=== PATIENT | female | born 1955 | race Caucasian/White ===

== ENCOUNTER 2020-09-05 20:03 | Emergency (ER) | payer BC, OTHER ==
[~2020-09-05] VITALS: Ht 162.5 cm; Wt 65.7 kg
[~2020-09-05 20:03] MED LIST: LEVO750T6; OSLT75C
[2020-09-05] MEDS ORDERED: ASPIRIN 81 MG CHEW (CHILDREN'S ASA) PO ONE (20:15)
[2020-09-05 20:28] LABS: BASOPHILS # (AUTO) 0.1 10^3/uL (0.0-0.1); BASOPHILS % (AUTO) 1 % (0-10); EOSINOPHILS # (AUTO) 0.3 10^3/uL (0.0-0.3); EOSINOPHILS % (AUTO) 4 % (0-10); HEMATOCRIT 44 % (35-52); HEMOGLOBIN 14.6 g/dL (11.5-16.0); LYMPHOCYTES # (AUTO) 3.4 10^3/uL (1.0-4.0); LYMPHOCYTES % (AUTO) 42 % (12-44); MEAN CORPUSCULAR HEMOGLOBIN 32 pg (25-34); MEAN CORPUSCULAR HGB CONC 33 g/dL (32-36); MEAN CORPUSCULAR VOLUME 95 fL (80-99); MEAN PLATELET VOLUME 9.6 fL (9.0-12.2); MONOCYTES # (AUTO) 0.6 10^3/uL (0.0-1.0); MONOCYTES % (AUTO) 7 % (0-12); NEUTROPHILS # (AUTO) 3.6 10^3/uL (1.8-7.8); NEUTROPHILS % (AUTO) 46 % (42-75); PLATELET COUNT 253 10^3/uL (130-400); WHITE BLOOD COUNT 7.9 10^3/uL (4.3-11.0)
[2020-09-05] MEDS ORDERED: LACTATED RINGERS 1,000 ML IV ONE ×2 (20:36→20:45)
[2020-09-05 20:38] LABS: ALBUMIN 4.5 GM/DL (3.2-4.5)
[2020-09-05 20:39] LABS: CHLORIDE 105 MMOL/L (98-107); POTASSIUM 3.3 MMOL/L (3.6-5.0); SODIUM 140 MMOL/L (135-145)
[2020-09-05 20:40] LABS: AMYLASE 64 U/L (25-125); CALCIUM 9.1 MG/DL (8.5-10.1)
[2020-09-05 20:41] LABS: GLUCOSE 104 MG/DL (70-105); TOTAL PROTEIN 7.4 GM/DL (6.4-8.2)
--- NOTE | 2020-09-05 20:41 | ED General ---
General Chief Complaint: Cough/Cold/Flu Symptoms Stated Complaint: CHEST PAIN;CHILLS;DIZZY Source of Information: Patient History of Present Illness Date Seen by Provider: Sep 05, 2020 Time Seen by Provider: 20:08 Initial Comments PT ARRIVES VIA POV FROM HOME PT WITH MULTIPLE COMPLAINTS--ALL STARTED AROUND 1500 TODAY C/O CHILLS--HAS NOT CHECKED TEMP. TOOK 2 TYLENOL AROUND 1730 C/O BODY ACHES C/O HEADACHE C/O NON-PRODUCTIVE COUGH C/O MILD SHORTNESS OF BREATH C/O RIGHT UPPER CHEST PAIN--WITH COUGHING OR TAKING DEEP BREATH C/O NAUSEA, NO VOMITING. NO DIARRHEA. 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 PT DENIES ANY MEDICAL PROBLEMS, AND TAKES NO MEDICATIONS PT SMOKES 1 PPD PCP: DR. RADER Allergies and Home Medications Allergies Coded Allergies: erythromycin base (Verified Allergy, Unknown, 09/05/20) Home Medications Dexamethasone 6 Mg Tablet, 6 MG PO DAILY Prescribed by: LAURA CLARK on 09/05/202126 Guaifenesin/Dextromethorphan 1 Each Tbmp.12hr, 1 EACH PO BID Prescribed by: LAURA CLARK on 09/05/202126 Ondansetron 8 Mg Tab.rapdis, 8 MG PO Q6H Prescribed by: LAURA CLARK on 09/05/202125 Patient Home Medication List Home Medication List Reviewed: Yes Review of Systems Review of Systems Constitutional: see HPI, chills; No diaphoresis; dizziness; No fever; weakness EENTM: no symptoms reported; No nose congestion, No throat pain Respiratory: see HPI, cough, short of breath Cardiovascular: see HPI, chest pain; No edema, No palpitations, No syncope, No vascular heart diseas Gastrointestinal: see HPI; No abdominal pain, No diarrhea; nausea; No vomiting Genitourinary: no symptoms reported Musculoskeletal: see HPI (BODY ACHES) Skin: no symptoms reported Psychiatric/Neurological: Headache; Denies Numbness, Denies Paresthesia, Denies Seizure, Denies Tingling, Denies Weakness Hematologic/Lymphatic: No Symptoms Reported Immunological/Allergic: no symptoms reported Past Kdrfnnu-Qcgthe-Hncwvn Hx Past Med/Social Hx: Reviewed and Corrections made Patient Social History Alcohol Use: Denies Use Recreational Drug Use: No Smoking Status: Current Everyday Smoker (1 PPD) Type Used: Cigarettes Past Medical History Surgeries: Yes (RIGHT PNEUMOTHORAX/CHEST TUBE; HYST/BSO/APPY; BLADDER REPAIR; BOWEL REPAIR) Abdominal, Appendectomy, Bladder Surgery, Bowel Surgery, Hysterectomy, Oophorectomy Respiratory: Yes (PNEUMONIA X 1; RIGHT PNEUMOTHORAX POST OP) Pneumonia Cardiac: No Neurological: No 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 oz. kg; BMI Method: General Appearance: No Apparent Distress, WD/WN, Anxious, Other (TREMULOUS, SHIVERING. DOES NOT APPEAR ILL OR TO BE IN ANY DISCOMFORT OR DISTRESS ) HEENT: PERRL/EOMI, Pharynx Normal Neck: Full Range of Motion, Normal Inspection, Non Tender, Supple; No Carotid Bruit, No JVD Respiratory: Chest Non Tender, Normal Breath Sounds, No Accessory Muscle Use, No Respiratory Distress Cardiovascular: Regular Rate, Rhythm, No Edema, No JVD, No Murmur, Normal Peripheral Pulses Gastrointestinal: Normal Bowel Sounds, No Organomegaly, No Pulsatile Mass, Non Tender, Soft Back: Normal Inspection, No CVA Tenderness Extremity: Normal Capillary Refill, Normal Inspection, Normal Range of Motion, Non Tender, No Calf Tenderness, No Pedal Edema Neurologic/Psychiatric: Alert, Oriented x3, No Motor/Sensory Deficits, repairer engine production II- XII Norm as Tested, Other (ANXIOUS) Skin: Normal Color, Warm/Dry; No Rash Progress/Results/Core Measures Suspected Sepsis SIRS Temperature: Pulse: Respiratory Rate: Laboratory Tests 09/05/20 20:20: White Blood Count 7.9 Blood Pressure / Mean: Laboratory Tests 09/05/20 20:20: Creatinine 0.82, INR Comment 1.0, Platelet Count 253, Total Bilirubin 0.5 Results/Orders Lab Results Laboratory Tests Test 09/05/20 20:20 09/05/20 20:25 Range/Units White Blood Count 7.9 4.3-11.0 10^3/uL Red Blood Count 4.59 3.80-5.11 10^6/uL Hemoglobin 14.6 11.5-16.0 g/dL Hematocrit 44 35-52 % Mean Corpuscular Volume 95 80-99 fL Mean Corpuscular Hemoglobin 32 25-34 pg Mean Corpuscular Hemoglobin Concent 33 32-36 g/dL Red Cell Distribution Width 13.1 10.0-14.5 % Platelet Count 253 130-400 10^3/uL Mean Platelet Volume 9.6 9.0-12.2 fL Immature Granulocyte % (Auto) 0 % Neutrophils (%) (Auto) 46 42-75 % Lymphocytes (%) (Auto) 42 12-44 % Monocytes (%) (Auto) 7 0-12 % Eosinophils (%) (Auto) 4 0-10 % Basophils (%) (Auto) 1 0-10 % Neutrophils # (Auto) 3.6 1.8-7.8 10^3/uL Lymphocytes # (Auto) 3.4 1.0-4.0 10^3/uL Monocytes # (Auto) 0.6 0.0-1.0 10^3/uL Eosinophils # (Auto) 0.3 0.0-0.3 10^3/uL Basophils # (Auto) 0.1 0.0-0.1 10^3/uL Immature Granulocyte # (Auto) 0.0 0.0-0.1 10^3/uL Erythrocyte Sedimentation Rate 5 0-30 MM/HR Prothrombin Time 13.3 12.2-14.7 SEC INR Comment 1.0 0.8-1.4 Activated Partial Thromboplast Time 29 24-35 SEC D-Dimer 0.49 0.00-0.49 UG/ML Sodium Level 140 135-145 MMOL/L Potassium Level 3.3 L 3.6-5.0 MMOL/L Chloride Level 105 98-107 MMOL/L Carbon Dioxide Level 24 21-32 MMOL/L Anion Gap 11 5-14 MMOL/L Blood Urea Nitrogen 18 7-18 MG/DL Creatinine 0.82 0.60-1.30 MG/DL Estimat Glomerular Filtration Rate > 60 BUN/Creatinine Ratio 22 Glucose Level 104 70-105 MG/DL Calcium Level 9.1 8.5-10.1 MG/DL Corrected Calcium 8.7 8.5-10.1 MG/DL Magnesium Level 1.9 1.6-2.4 MG/DL Total Bilirubin 0.5 0.1-1.0 MG/DL Aspartate Amino Transf (AST/SGOT) 14 5-34 U/L Alanine Aminotransferase (ALT/SGPT) 12 0-55 U/L Alkaline Phosphatase 63 40-136 U/L Lactate Dehydrogenase 166 125-220 U/L Total Creatine Kinase 79 29-168 U/L Creatine Kinase MB 1.1 <6.6 NG/ML Myoglobin 39.8 10.0-92.0 NG/ML Troponin I < 0.028 <0.028 NG/ML C-Reactive Protein High Sensitivity 0.07 0.00-0.50 MG/DL B-Type Natriuretic Peptide 24.3 <100.0 PG/ML Total Protein 7.4 6.4-8.2 GM/DL Albumin 4.5 3.2-4.5 GM/DL Amylase Level 64 25-125 U/L Lipase 25 8-78 U/L Procalcitonin 0.02 <0.10 NG/ML Coronavirus 2019 ([facility]ISMA) Negative Negative Micro Results Microbiology 09/05/20 Influenza Types A,B Antigen (FINN) - Final, Complete My Orders Orders - LAURA CLARK DO Ed Iv/Invasive Line Start (09/05/20 20:08) Ekg Tracing (09/05/20 20:08) O2 (09/05/20 20:08) Monitor-Rhythm Ecg Trace Only (09/05/20 20:08) Amylase (09/05/20 20:08) BNP (09/05/20 20:08) Cbc With Automated Diff (09/05/20 20:08) Comprehensive Metabolic Panel (09/05/20 20:08) Creatine Kinase (09/05/20 20:08) Creatine Kinase Mb (09/05/20 20:08) Hs C Reactive Protein (09/05/20 20:08) Fibrin Degradation Products (09/05/20 20:08) Lipase (09/05/20 20:08) Magnesium (09/05/20 20:08) Protime With Inr (09/05/20 20:08) Partial Thromboplastin Time (09/05/20 20:08) Ua Culture If Indicated (09/05/20 20:08) Blood Culture (09/05/20 20:08) Influenza A And B Antigens (09/05/20 20:08) Erythrocyte Sedimentation Rate (09/05/20 20:08) Myoglobin Serum (09/05/20 20:08) Troponin I (09/05/20 20:08) Chest 1 View, Ap/Pa Only (09/05/20 20:08) Ed Iv/Invasive Line Start (09/05/20 20:08) Aspirin Chewable Tablet (Baby Aspirin Ch (09/05/20 20:15) Procalcitonin (Pct) (09/05/20 20:11) LDH (09/05/20 20:11) Coronavirus Sars-Cov-2 So 2019 (09/05/20 20:11) Covid 19 Inhouse Test (09/05/20 20:11) Ed Iv/Invasive Line Start (09/05/20 20:38) Lactated Ringers (Lr 1000 Ml Iv Solution (09/05/20 20:45) Lactated Ringers (Lr 1000 Ml Iv Solution (09/05/20 20:36) Medications Given in ED Current Medications Medications Dose Ordered Sig/Ricardo Route Start Time Stop Time Status Last Admin Dose Admin Aspirin 324 mg ONCE ONCE PO 09/05/20 20:15 09/05/20 20:16 DC 09/05/20 20:40 324 MG Lactated Ringer's 1,000 ml @ 0 mls/hr Q0M ONCE IV 09/05/20 20:45 09/05/20 21:22 DC 09/05/20 20:40 0 MLS/HR Vital Signs/I&O 09/05/20 09/05/20 20:11 20:11 Temp 36.4 Pulse 79 Resp 20 B/P (MAP) 112/97 (102) Pulse Ox 98 O2 Delivery Room Air Room Air Capillary Refill : Progress Note : Progress Note PLACED IN ISOLATION ROOM PPE WORN AT ALL TIMES 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 There is no pleural effusion, pneumothorax, or pneumonia. The osseous structures are unremarkable. IMPRESSION: No acute cardiopulmonary abnormality. Reviewed: Reviewed by Me Departure Impression Primary Impression: Person under investigation for COVID-19 Disposition: 01 HOME, SELF-CARE Condition: Stable Departure-Patient Inst. Referrals: IRENE RADER MD (PCP/Family) Primary Care Physician Patient Instructions: Coronavirus Disease 2019 (COVID-19) (DC) Add. Discharge Instructions: LOTS OF CLEAR LIQUIDS--WATER, BROTH, JELLO, GATORADE--DRINK ENOUGH SO YOU ARE URINATING EVERY 2-3 HOURS WHILE AWAKE TYLENOL AND MOTRIN NEEDED FOR PAIN OR FEVER QUARANTINE YOURSELF AND ALL HOUSEHOLD MEMBERS FOR 2 WEEKS OR UNTIL CLEARED BY DR. OR HEALTH DEPT FOLLOW UP WITH YOUR DR IN 4-5 DAYS IF NO BETTER, RETURN TO ER IF WORSE IF STILL SYMPTOMATIC, YOU WILL NEED TO BE RE-TESTED AT THAT TIME. All discharge instructions reviewed with patient and/or family. Voiced understanding. Scripts Dexamethasone (Decadron) 6 Mg Tablet 6 MG PO DAILY, #10 TAB Prov: LAURA CLARK DO 09/05/20 Guaifenesin/Dextromethorphan (Mucinex Dm ER 1,200-60 mg Tab) 1 Each Tbmp.12hr 1 EACH PO BID, #20 EA Prov: LAURA CLARK DO 09/05/20 Ondansetron (Ondansetron Odt) 8 Mg Tab.rapdis 8 MG PO Q6H, #10 TAB Prov: LAURA CLARK DO 09/05/20 LAURA CLARK DO Sep 05, 2020 20:41
[2020-09-05 20:42] LABS: CARBON DIOXIDE 24 MMOL/L (21-32); FIBRIN DEGRADATION PRODUCTS 0.49 UG/ML (0.00-0.49); PROTHROMBIN TIME PATIENT 13.3 SEC (12.2-14.7)
[2020-09-05 20:43] LABS: BILIRUBIN,TOTAL 0.5 MG/DL (0.1-1.0)
[2020-09-05 20:44] LABS: ALKALINE PHOSPHATASE 63 U/L (40-136)
[2020-09-05 20:45] LABS: CREATININE SERUM 0.82 MG/DL (0.60-1.30); GFR ESTIMATED > 60
[2020-09-05 20:46] LABS: BUN/CREATININE RATIO 22
[2020-09-05 20:47] LABS: ERYTHROCYTE SEDIMENTATION RATE 5 MM/HR (0-30)
[2020-09-05 20:48] LABS: ALANINE AMINOTRANSFERASE 12 U/L (0-55); MAGNESIUM 1.9 MG/DL (1.6-2.4)
[2020-09-05 20:49] LABS: CREATINE KINASE 79 U/L (29-168); LIPASE 25 U/L (8-78)
[2020-09-05 20:56] LABS: CREATINE KINASE MB 1.1 NG/ML (<6.6)
[2020-09-05] MEDS ORDERED: ONDA8TAB13 PO (21:26)
[2020-09-05] MEDS ORDERED: DEXA6TAB6 PO (21:27)
[2020-09-05] MEDS ORDERED: GUAI1TBM19 PO (21:27)
[2020-09-05 21:32] VITALS: BP 109/53
--- NOTE | 2020-09-05 21:34 | Diagnostic Imaging Report ---
INDICATION: Cough. COMPARISON: Prior examination from 02/25/2016. FINDINGS: The heart size, mediastinal configuration, and pulmonary vascularity are within normal limits. There is no pleural effusion, pneumothorax, or pneumonia. The osseous structures are unremarkable. IMPRESSION: No acute cardiopulmonary abnormality. Dictated by: Dictated on workstation # [id number]
== END 2020-09-05 21:37 | disposition home or self-care (01) ==
LOC: EDUNIT# 20:03 → ER 20:04
DX: Z20.828 Contact with and (suspected) exposure to other viral communicable diseases (principal); F41.9 Anxiety disorder, unspecified; F17.210 Nicotine dependence, cigarettes, uncomplicated; Z88.1 Allergy status to other antibiotic agents
CPT/HCPCS: 71045; 80053; 82150; 82550; 82553; 83615; 83690; 83735; 83874; 83880; 84145; 84484; 85025; 85379; 85610; 85652; 85730; 86141; 87040; 87804; 93041; 99284; U0002; 36415; 87635; 93005; 96360

== ENCOUNTER 2020-09-13 17:16 | Emergency (ER) | payer OTHER ==
[~2020-09-13] VITALS: Ht 162.6 cm; Wt 65.0 kg
[~2020-09-13 17:16] MED LIST changes: +DEXA6TAB6 PO; +GUAI1TBM19 PO; +ONDA8TAB13 PO
[2020-09-13] MEDS ORDERED: PROMETHAZINE/ CODEINE SYRUP 5 ML UDC ONE (17:40)
--- NOTE | 2020-09-13 17:44 | ED Cough/URI ---
General Chief Complaint: Cough/Cold/Flu Symptoms Stated Complaint: COUGH Source: patient Exam Limitations: no limitations History of Present Illness Date Seen by Provider: Sep 13, 2020 Time Seen by Provider: 17:43 Initial Comments To ER with a cough. Symptoms began about a 8 days ago. She was tested for Covid with both a rapid and a send out test 8 days ago. no soa, only c/o fatigue and cough Timing/Duration: week Severity/Quality: moderate Prior Episodes/Possible Cause: no prior episodes Associated Symptoms: cough Allergies and Home Medications Allergies Coded Allergies: erythromycin base (Verified Allergy, Unknown, 09/05/20) Home Medications Dexamethasone 6 Mg Tablet, 6 MG PO DAILY Prescribed by: LAURA CLARK on 09/05/202126 Guaifenesin/Dextromethorphan 1 Each Tbmp.12hr, 1 EACH PO BID Prescribed by: LAURA CLARK on 09/05/202126 Ondansetron 8 Mg Tab.rapdis, 8 MG PO Q6H Prescribed by: LAURA CLARK on 09/05/202125 Promethazine HCl/Codeine 5 Ml Syrup, 5 ML PO Q4H PRN for COUGH Prescribed by: JERZY LYNN on 09/13/20 1832 Patient Home Medication List Home Medication List Reviewed: Yes Review of Systems Review of Systems Constitutional: see HPI EENTM: see HPI Respiratory: see HPI, cough Cardiovascular: no symptoms reported Genitourinary: no symptoms reported Musculoskeletal: no symptoms reported Skin: no symptoms reported Psychiatric/Neurological: No Symptoms Reported Past Mvvamdk-Clgubg-Ffujrs Hx Patient Social History Type Used: Cigarettes 2nd Hand Smoke Exposure: Yes Recent Foreign Travel: No Contact w/Someone Who Travel: No Recent Hopitalizations: No Immunizations Up To Date Tetanus Booster (TDap): Unknown Seasonal Allergies Seasonal Allergies: No Past Medical History Surgeries: Yes (RIGHT PNEUMOTHORAX/CHEST TUBE; HYST/BSO/APPY; BLADDER REPAIR; BOWEL REPAIR) Abdominal, Appendectomy, Bladder Surgery, Bowel Surgery, Hysterectomy, Oophorectomy Respiratory: Yes (PNEUMONIA X 1; RIGHT PNEUMOTHORAX POST OP) Pneumonia Cardiac: No Neurological: No 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 oz. kg; 24.00 BMI Method: General Appearance: WD/WN, no apparent distress Neck: non-tender, full range of motion Respiratory: normal breath sounds, no respiratory distress, no accessory muscle use; No wheezing Cardiovascular: regular rate, rhythm, no murmur Gastrointestinal: normal bowel sounds, non tender, soft Extremities: normal range of motion, non-tender Neurologic/Psychiatric: alert, normal mood/affect, oriented x 3 Skin: normal color, warm/dry Progress/Results/Core Measures Suspected Sepsis SIRS Temperature: Pulse: Respiratory Rate: Blood Pressure / Mean: Results/Orders Lab Results Laboratory Tests Test 09/13/20 18:11 Range/Units Coronavirus 2019 ([facility]IS[facility]) Positive H Negative My Orders Orders - JERZY LYNN APRN Promethazine/ Codeine Syrup (Phenergan W (09/13/20 17:45) Chest 1 View, Ap/Pa Only (09/13/20 17:42) Promethazine/ Codeine Syrup (Phenergan W (09/13/20 17:40) Covid 19 Inhouse Test (09/13/20 17:44) Rx-Acetaminophen/Codeine (Rx-Tylenol #3) (09/13/20 18:45) Medications Given in ED Current Medications Medications Dose Ordered Sig/Ricardo Route Start Time Stop Time Status Last Admin Dose Admin Promethazine HCl/ Codeine 5 ml ONCE ONCE PO 09/13/20 17:45 09/13/20 17:46 DC 09/13/20 18:03 5 ML Vital Signs/I&O 09/13/20 17:35 Temp 36.3 Pulse 78 Resp 20 B/P (MAP) 117/57 (77) Pulse Ox 98 O2 Delivery Room Air Capillary Refill : Departure Communication (Admissions) 1900-sats remain 98% room air, clear lungs. will dc to home. Impression Primary Impression: COVID-19 Disposition: 01 HOME, SELF-CARE Condition: Stable Departure-Patient Inst. Decision time for Depature: 18:30 Referrals: IRENE RADER MD (PCP/Family) Primary Care Physician Patient Instructions: Acute Bronchitis, Adult (DC) Add. Discharge Instructions: 1. Cough medication as directed. Continue the antibiotics. Follow-up with your doctor next week. Return to ER for any worsening. All discharge instructions reviewed with patient and/or family. Voiced understanding. Scripts Prednisone (Prednisone) 20 Mg Tab 40 MG PO DAILY, #6 TAB 0 Refills Prov: JERZY LYNN APRN 09/13/20 Promethazine HCl/Codeine (Prometh-Codein 6.25-10 mg/5 ml) 5 Ml Syrup 5 ML PO Q4H PRN for COUGH, #120 ML . Prov: JERZY LYNN APRN 09/13/20 JERZY LYNN APRN Sep 13, 2020 17:44
[2020-09-13] MEDS ORDERED: PROMETHAZINE/ CODEINE SYRUP 5 ML UDC PO ONE (17:45)
--- NOTE | 2020-09-13 18:21 | Diagnostic Imaging Report ---
EXAMINATION: Chest 1 view. HISTORY: Cough. COMPARISON: 09/05/2020. FINDINGS: The lungs are clear without edema or pneumonia. No pleural effusion or pneumothorax. Heart size is normal. IMPRESSION: Clear lungs. Dictated by: Dictated on workstation # [id number]
[2020-09-13] MEDS ORDERED: PROM5SYR PO ×3 (18:32→19:41)
[2020-09-13] MEDS ORDERED: RX-ACETAMINOPHEN/CODEINE TAB PPK #4 PO SCH (18:45)
[2020-09-13] MEDS ORDERED: PRD20T PO ×2 (18:58→19:41)
[2020-09-13 19:00] VITALS: BP 108/67
== END 2020-09-13 19:00 | disposition home or self-care (01) ==
LOC: EDUNIT# 17:16 → ER 17:18
DX: U07.1 COVID-19 (principal); Z77.22 Contact with and (suspected) exposure to environmental tobacco smoke (acute) (chronic); Z88.1 Allergy status to other antibiotic agents
CPT/HCPCS: 71045; 99282; U0002; 87635

== ENCOUNTER 2020-09-30 14:43 | Emergency (ER) | payer OTHER ==
[~2020-09-30] VITALS: Ht 162 cm; Wt 65.7 kg
[~2020-09-30 14:43] MED LIST changes: +PRD20T PO; +PROM5SYR PO
[2020-09-30] MEDS ORDERED: RT-ALBUTEROL INHALER HFA (VENTOLIN HFA) 18 GM IH STA (15:06)
--- NOTE | 2020-09-30 15:18 | ED Cough/URI ---
General Chief Complaint: Respiratory Problems Stated Complaint: SOB,COVID + Nursing Triage Note: Pt reports she tested positive for COVID during an ER visit on 09/13. Pt was treated outpatient and had resolution of symptoms. For the last 1-2 days pt has felt SOA and has had cough, headache, and chest discomfort. Sepsis Screen: No Definite Risk Source: patient Exam Limitations: no limitations History of Present Illness Date Seen by Provider: Sep 30, 2020 Time Seen by Provider: 14:57 Initial Comments Here with 1 to 2 days of shortness of air with cough and a headache. States has had chills but no fever. Chest discomfort is tightness. She is recovered from COVID-19 infection after being diagnosed here on 09/13/2020. She did not have significant problems and was doing okay until 1 to 2 days ago when things were worsening. Denies nausea, vomiting or diarrhea. Reports eating and drinking okay. Timing/Duration: getting worse, other (1 to 2 days) Severity/Quality: mild, dry cough Modifying Factors: Worse With Activity; Improves With Rest Associated Symptoms: chest pain/soreness, cough, headache, muscle aches, nasal congestion, shortness of breath, sore throat, wheezing Allergies and Home Medications Allergies Coded Allergies: erythromycin base (Verified Allergy, Unknown, 09/05/20) Home Medications Dexamethasone 6 Mg Tablet, 6 MG PO DAILY Prescribed by: LAURA CLARK on 09/05/202126 Guaifenesin/Dextromethorphan 1 Each Tbmp.12hr, 1 EACH PO BID Prescribed by: LAURA CLARK on 09/05/202126 Ondansetron 8 Mg Tab.rapdis, 8 MG PO Q6H Prescribed by: LAURA CLARK on 09/05/202125 Prednisone 20 Mg Tab, 40 MG PO DAILY . Prescribed by: JERZY LYNN on 09/13/201940 Promethazine HCl/Codeine 5 Ml Syrup, 5 ML PO Q4H PRN for COUGH .. Prescribed by: JERZY LYNN on 09/13/201940 Patient Home Medication List Home Medication List Reviewed: Yes Review of Systems Review of Systems Constitutional: see HPI, chills; No fever EENTM: No nose congestion, No throat pain Respiratory: cough, short of breath, wheezing Cardiovascular: see HPI; No edema Gastrointestinal: No abdominal pain, No nausea, No vomiting Genitourinary: no symptoms reported Musculoskeletal: no symptoms reported Skin: no symptoms reported All Other Systems Reviewed Negative Unless Noted: Yes Past Fkrqgyi-Qndoux-Gddajx Hx Past Med/Social Hx: Reviewed Nursing Past Med/Soc Hx Patient Social History Alcohol Use: Rarely Uses Smoking Status: Current Everyday Smoker Type Used: Cigarettes 2nd Hand Smoke Exposure: Yes Recent Infectious Disease Expo: No Recent Hopitalizations: No Immunizations Up To Date Tetanus Booster (TDap): Unknown Seasonal Allergies Seasonal Allergies: No Past Medical History Surgeries: Yes (RIGHT PNEUMOTHORAX/CHEST TUBE; HYST/BSO/APPY; BLADDER REPAIR; BOWEL REPAIR) Abdominal, Appendectomy, Bladder Surgery, Bowel Surgery, Hysterectomy, Oophorectomy Respiratory: Yes (PNEUMONIA X 1; RIGHT PNEUMOTHORAX POST OP) Pneumonia Cardiac: No Neurological: No 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 oz. kg; 25.00 BMI Method: General Appearance: WD/WN, no apparent distress HEENT: PERRL/EOMI, pharynx normal Neck: full range of motion, supple Respiratory: lungs clear, normal breath sounds Cardiovascular: regular rate, rhythm, no murmur Gastrointestinal: non tender, soft Extremities: non-tender, normal inspection Neurologic/Psychiatric: alert, oriented x 3 Skin: normal color, warm/dry Progress/Results/Core Measures Suspected Sepsis Recent Fever Within 48 Hours: No Infection Criteria Present: None New/Unexplained Altered Menta: No Sepsis Screen: No Definite Risk SIRS Temperature: Pulse: 77 Respiratory Rate: 18 Laboratory Tests 09/30/20 15:00: White Blood Count 11.4H Blood Pressure 142 /74 Mean: 96 Laboratory Tests 09/30/20 15:00: Creatinine 0.94, Platelet Count 252, Total Bilirubin 0.5 Results/Orders Lab Results Laboratory Tests Test 09/30/20 15:00 Range/Units White Blood Count 11.4 H 4.3-11.0 10^3/uL Red Blood Count 4.66 3.80-5.11 10^6/uL Hemoglobin 15.0 11.5-16.0 g/dL Hematocrit 45 35-52 % Mean Corpuscular Volume 96 80-99 fL Mean Corpuscular Hemoglobin 32 25-34 pg Mean Corpuscular Hemoglobin Concent 34 32-36 g/dL Red Cell Distribution Width 13.3 10.0-14.5 % Platelet Count 252 130-400 10^3/uL Mean Platelet Volume 9.9 9.0-12.2 fL Immature Granulocyte % (Auto) 2 % Neutrophils (%) (Auto) 55 42-75 % Lymphocytes (%) (Auto) 36 12-44 % Monocytes (%) (Auto) 6 0-12 % Eosinophils (%) (Auto) 1 0-10 % Basophils (%) (Auto) 0 0-10 % Neutrophils # (Auto) 6.3 1.8-7.8 10^3/uL Lymphocytes # (Auto) 4.1 H 1.0-4.0 10^3/uL Monocytes # (Auto) 0.7 0.0-1.0 10^3/uL Eosinophils # (Auto) 0.1 0.0-0.3 10^3/uL Basophils # (Auto) 0.0 0.0-0.1 10^3/uL Immature Granulocyte # (Auto) 0.2 H 0.0-0.1 10^3/uL D-Dimer < 0.27 0.00-0.49 UG/ML Sodium Level 142 135-145 MMOL/L Potassium Level 3.5 L 3.6-5.0 MMOL/L Chloride Level 102 98-107 MMOL/L Carbon Dioxide Level 28 21-32 MMOL/L Anion Gap 12 5-14 MMOL/L Blood Urea Nitrogen 14 7-18 MG/DL Creatinine 0.94 0.60-1.30 MG/DL Estimat Glomerular Filtration Rate 60 BUN/Creatinine Ratio 15 Glucose Level 101 70-105 MG/DL Calcium Level 9.2 8.5-10.1 MG/DL Corrected Calcium 9.0 8.5-10.1 MG/DL Total Bilirubin 0.5 0.1-1.0 MG/DL Aspartate Amino Transf (AST/SGOT) 14 5-34 U/L Alanine Aminotransferase (ALT/SGPT) 18 0-55 U/L Alkaline Phosphatase 52 40-136 U/L Troponin I < 0.028 <0.028 NG/ML C-Reactive Protein High Sensitivity 0.02 0.00-0.50 MG/DL Total Protein 7.0 6.4-8.2 GM/DL Albumin 4.2 3.2-4.5 GM/DL Micro Results Microbiology 09/30/20 Influenza Types A,B Antigen (FINN) - Final, Complete My Orders Orders - LONNY LUCIANO MD Cbc With Automated Diff (09/30/20 15:06) Comprehensive Metabolic Panel (09/30/20 15:06) Hs C Reactive Protein (09/30/20 15:06) Fibrin Degradation Products (09/30/20 15:06) Influenza A And B Antigens (09/30/20 15:06) Ed Iv/Invasive Line Start (09/30/20 15:06) Chest 1 View, Ap/Pa Only (09/30/20 15:06) Albuterol Inhaler (Ventolin Hfa) (09/30/20 15:06) Ekg Tracing (09/30/20 15:18) Troponin I (09/30/20 15:18) Vital Signs/I&O 09/30/20 15:00 Temp 35.4 Pulse 77 Resp 18 B/P (MAP) 142/74 (96) Pulse Ox 100 O2 Delivery Room Air Capillary Refill : Less Than 3 Seconds Blood Pressure Mean: 96 Progress Note : Progress Note Seen and evaluated. IV, labs, EKG and chest x-ray ordered. Albuterol MDI 2 puffs via spacer ordered. Monitor patient. 1604: Overall doing better. Question pneumonia on x-ray. We will go ahead and initiate outpatient antibiotics as well as steroids given her COPD status. She was appreciative of that. Discharged home with return precautions. Patient verbalized understanding of instructions and agreement with plan. ECG Initial ECG Impression Date: Sep 30, 2020 Initial ECG Impression Time: 15:40 Initial ECG Rate: 73 Initial ECG Rhythm: Normal Sinus Initial ECG Comparisson: Unchanged Comment Sinus rhythm with normal axis. No evidence of ST elevation PA. Unchanged from previous of 09/05/2020. Interpreted by me. Diagnostic Imaging Diagonstic Imaging: Xray Plain Films/CT/US/NM/MRI: chest Comments [facility], [facility]. [place], [place] NAME: LUKE KEYS [facility] REC#: [id number] PT STATUS: REG ER : 1955 PHYSICIAN: LONNY LUCIANO MD ADMIT DATE: 09/30/20/ER Draft Date of Exam:09/30/20 CHEST 1 VIEW, AP/PA ONLY INDICATION: Dyspnea and cough. Single AP view of the chest is obtained with comparison made to study of 09/13/2020. Heart size and pulmonary vascularity are within normal limits. There is no evidence of pneumothorax or consolidation. Slight increased density is present within the lingula resulting in mild obscuration of the left heart border. There is no evidence of pleural fluid. IMPRESSION: Possible mild focal infiltrate or pneumonitis in the lingula. Follow-up PA and lateral views of the chest could be considered. Dictated on workstation # [id number] Dict: 09/30/20 1534 Trans: 09/30/20 1539 [facility] [id number] Interpreted by: ESTELA CARTER MD Electronically signed by: Departure Impression Primary Impression: Left lower lobe pneumonia Qualified Codes: J18.9 - Pneumonia, unspecified organism Disposition: HOME, SELF-CARE Condition: Improved Departure-Patient Inst. Decision time for Depature: 16:05 Referrals: IRENE RADER MD (PCP/Family) Primary Care Physician Patient Instructions: Pneumonia, Adult (DC) Add. Discharge Instructions: All discharge instructions reviewed with patient and/or family. Voiced understanding. Take medications as directed. Use albuterol inhaler with spacer 2 puffs every 4-6 hours as needed. Follow-up with your doctor in a few days for recheck. Return for worse pain, fever, vomiting, weakness, breathing problems or other concerns as needed. Drink plenty of fluids and get plenty of rest. Scripts Prednisone (Prednisone) 20 Mg Tab 40 MG PO DAILY, #10 TAB 0 Refills Prov: LONNY LUCIANO MD 09/30/20 Cefdinir (Cefdinir) 300 Mg Capsule 300 MG PO BID, #20 CAP 0 Refills Prov: LONNY LUCIANO MD 09/30/20 LONNY LUCIANO MD Sep 30, 2020 15:18
[2020-09-30 15:19] LABS: BASOPHILS % (AUTO) 0 % (0-10); EOSINOPHILS # (AUTO) 0.1 10^3/uL (0.0-0.3); EOSINOPHILS % (AUTO) 1 % (0-10); HEMATOCRIT 45 % (35-52); LYMPHOCYTES # (AUTO) 4.1 10^3/uL (1.0-4.0); LYMPHOCYTES % (AUTO) 36 % (12-44); MEAN CORPUSCULAR HEMOGLOBIN 32 pg (25-34); MEAN CORPUSCULAR HGB CONC 34 g/dL (32-36); MEAN CORPUSCULAR VOLUME 96 fL (80-99); MEAN PLATELET VOLUME 9.9 fL (9.0-12.2); MONOCYTES # (AUTO) 0.7 10^3/uL (0.0-1.0); MONOCYTES % (AUTO) 6 % (0-12); NEUTROPHILS # (AUTO) 6.3 10^3/uL (1.8-7.8); NEUTROPHILS % (AUTO) 55 % (42-75); PLATELET COUNT 252 10^3/uL (130-400); WHITE BLOOD COUNT 11.4 10^3/uL (4.3-11.0)
[2020-09-30 15:25] LABS: ALBUMIN 4.2 GM/DL (3.2-4.5); POTASSIUM 3.5 MMOL/L (3.6-5.0)
[2020-09-30 15:26] LABS: CALCIUM 9.2 MG/DL (8.5-10.1)
[2020-09-30 15:29] LABS: BILIRUBIN,TOTAL 0.5 MG/DL (0.1-1.0)
[2020-09-30 15:31] LABS: CREATININE SERUM 0.94 MG/DL (0.60-1.30)
--- NOTE | 2020-09-30 15:39 | Diagnostic Imaging Report ---
INDICATION: Dyspnea and cough. Single AP view of the chest is obtained with comparison made to study of 09/13/2020. Heart size and pulmonary vascularity are within normal limits. There is no evidence of pneumothorax or consolidation. Slight increased density is present within the lingula resulting in mild obscuration of the left heart border. There is no evidence of pleural fluid. IMPRESSION: Possible mild focal infiltrate or pneumonitis in the lingula. Follow-up PA and lateral views of the chest could be considered. Dictated by: Dictated on workstation # [id number]
[2020-09-30] MEDS ORDERED: CEFD300C3 PO (16:06)
[2020-09-30] MEDS ORDERED: PRD20T PO (16:06)
[2020-09-30 16:14] VITALS: BP 103/52
== END 2020-09-30 16:14 | disposition home or self-care (01) ==
LOC: EDUNIT# 14:43 → ER 14:45
DX: J18.1 Lobar pneumonia, unspecified organism (principal); J44.9 Chronic obstructive pulmonary disease, unspecified; F17.210 Nicotine dependence, cigarettes, uncomplicated; Z86.16 Personal history of COVID-19; Z88.1 Allergy status to other antibiotic agents
CPT/HCPCS: 36415; 71045; 80053; 84484; 85025; 85379; 86141; 87804; 93005

== ENCOUNTER → 2021-03-09 | Outpatient (CLI) | payer OTHER ==
[~2021-03-09] MED LIST changes: +CEFD300C3 PO
== END ==
LOC: CARD 08:25
DX: R00.1 Bradycardia, unspecified (principal)
CPT/HCPCS: 93306

== ENCOUNTER 2022-01-23 14:22 | Emergency (ER) | payer OTHER ==
[2022-01-23 14:38] LABS: BASOPHILS # (AUTO) 0.1 10^3/uL (0.0-0.1); BASOPHILS % (AUTO) 1 % (0-10); EOSINOPHILS # (AUTO) 0.2 10^3/uL (0.0-0.3); EOSINOPHILS % (AUTO) 3 % (0-10); HEMATOCRIT 45 % (35-52); HEMOGLOBIN 15.3 g/dL (11.5-16.0); LYMPHOCYTES # (AUTO) 2.9 10^3/uL (1.0-4.0); LYMPHOCYTES % (AUTO) 37 % (12-44); MEAN CORPUSCULAR HEMOGLOBIN 32 pg (25-34); MEAN CORPUSCULAR HGB CONC 34 g/dL (32-36); MEAN CORPUSCULAR VOLUME 96 fL (80-99); MEAN PLATELET VOLUME 9.3 fL (9.0-12.2); MONOCYTES # (AUTO) 0.5 10^3/uL (0.0-1.0); MONOCYTES % (AUTO) 7 % (0-12); NEUTROPHILS # (AUTO) 4.1 10^3/uL (1.8-7.8); NEUTROPHILS % (AUTO) 52 % (42-75); PLATELET COUNT 281 10^3/uL (130-400); WHITE BLOOD COUNT 7.8 10^3/uL (4.3-11.0)
[2022-01-23] MEDS ORDERED: NITROGLYCERIN 0.4 MG SL TABS BTL 25'S SL PRN (14:45)
[2022-01-23] MEDS ORDERED: ASPIRIN 81 MG CHEW (CHILDREN'S ASA) PO ONE (14:45)
[2022-01-23 14:49] LABS: ALBUMIN 4.6 GM/DL (3.2-4.5); CHLORIDE 104 MMOL/L (98-107); POTASSIUM 3.7 MMOL/L (3.6-5.0); SODIUM 143 MMOL/L (135-145)
[2022-01-23 14:50] LABS: AMYLASE 60 U/L (25-125); CALCIUM 9.6 MG/DL (8.5-10.1)
[2022-01-23 14:51] LABS: GLUCOSE 106 MG/DL (70-105); TOTAL PROTEIN 7.7 GM/DL (6.4-8.2)
--- NOTE | 2022-01-23 14:51 | Diagnostic Imaging Report ---
EXAMINATION: Chest 1 view. HISTORY: Chest pain. COMPARISON: 09/30/2020. FINDINGS: Heart size and pulmonary vasculature are normal. The lungs are clear without consolidation, pleural effusion, or pneumothorax. The osseous structures are intact. IMPRESSION: No acute radiographic abnormality in the chest. Dictated by: Dictated on workstation # [id number]
[2022-01-23 14:52] LABS: CARBON DIOXIDE 26 MMOL/L (21-32)
[2022-01-23 14:53] LABS: BILIRUBIN,TOTAL 0.8 MG/DL (0.1-1.0); INR 0.9 (0.8-1.4); PROTHROMBIN TIME PATIENT 12.8 SEC (12.2-14.7)
[2022-01-23 14:54] LABS: ALKALINE PHOSPHATASE 71 U/L (40-136)
--- NOTE | 2022-01-23 14:54 | ED Chest Pain ---
General Chief Complaint: Chest Pain Stated Complaint: CHEST PAIN/DIZZY/SHAKEY Nursing Triage Note: Patient states chest pain began approximately 1 hr ago at rest. Patient states she has substernal chest pain that comes and goes as "twinges" she denies shortness of breath. Source: patient History of Present Illness Date Seen by Provider: January 23, 2022 Time Seen by Provider: 14:32 Initial Comments PT ARRIVES VIA POV FROM HOME C/O CHEST PAIN PAIN BEGAN BETWEEN 1230 AND 1300 WHILE STANDING IN KITCHEN PAIN WAS IN CENTER OF CHEST AND LASTED LESS THAN 5 MINUTES NO PAIN SINCE, STATES NOW SHE JUST FEELS "SHAKEY" NO SHORTNESS OF BREATH NO SWEATS NO NAUSEA/VOMITING NO RADIATION OF PAIN NO PALPITATIONS NO DIZZINESS OR SYNCOPE NO COUGH, FEVER OR RECENT ILLNESS LAST ATE AT NOON PT STATES SHE HAS NO MEDICAL PROBLEMS AND DOES NOT TAKE ANY MEDICATIONS PT SMOKES 1 PPD, OCCASIONAL ETOH USE--NONE TODAY PT HAS HAS COVID-19 VACCINE X 2, NO BOOSTER. PT HAD COVID-19 INFECTION IN 2019--NO TREATMENT PCP: DR. RADER Allergies and Home Medications Allergies Coded Allergies: erythromycin base (Verified Allergy, Unknown, 09/05/20) Patient Home Medication List Home Medication List Reviewed: Yes Cefdinir (Cefdinir) 300 Mg Capsule, 300 MG PO BID Prescribed by: LONNY LUCIANO on 09/30/201605 Dexamethasone (Decadron) 6 Mg Tablet, 6 MG PO DAILY Prescribed by: LAURA CLARK on 09/05/202126 Guaifenesin/Dextromethorphan (Mucinex Dm ER 1,200-60 mg Tab) 1 Each Tbmp.12hr, 1 EACH PO BID Prescribed by: LAURA CLARK on 09/05/202126 Ondansetron (Ondansetron Odt) 8 Mg Tab.rapdis, 8 MG PO Q6H Prescribed by: LAURA CLARK on 09/05/202125 Prednisone (Prednisone) 20 Mg Tab, 40 MG PO DAILY Prescribed by: JERZY LYNN on 09/13/201940 Prednisone (Prednisone) 20 Mg Tab, 40 MG PO DAILY Prescribed by: LONNY LUCIANO on 09/30/201605 Promethazine HCl/Codeine (Prometh-Codein 6.25-10 mg/5 ml) 5 Ml Syrup, 5 ML PO Q4H PRN for COUGH Prescribed by: JERZY LYNN on 09/13/201940 Review of Systems Review of Systems Constitutional: see HPI; No diaphoresis, No dizziness, No fever EENTM: No Symptoms Reported Respiratory: No Symptoms Reported Cardiovascular: See HPI Gastrointestinal: No Symptoms Reported Genitourinary: No Symptoms Reported Musculoskeletal: no symptoms reported Skin: no symptoms reported Psychiatric/Neurological: See HPI, Anxiety Endocrine: No Symptoms Reported Hematologic/Lymphatic: No Symptoms Reported Past Cglrzfe-Ulyyal-Fmxfoo Hx Patient Social History Tobacco Use?: Yes (1 PPD) Tobacco type used: Cigarettes Smokeless Tobacco Frequency: Current Everyday User Substance use?: No Alcohol Use?: Yes Alcohol Frequency: Several times a month Immunizations Up To Date Tetanus Booster (TDap): Unknown First/Initial COVID19 Vaccinat: pfizer Seasonal Allergies Seasonal Allergies: No Past Medical History Surgery/Hospitalization HX: hystrectomy, pneumothorax Surgeries: Yes (RIGHT PNEUMOTHORAX/CHEST TUBE; HYST/BSO/APPY; BLADDER REPAIR; BOWEL REPAIR) Abdominal, Appendectomy, Bladder Surgery, Bowel Surgery, Hysterectomy, Oophorectomy Respiratory: Yes (PNEUMONIA X 1; RIGHT PNEUMOTHORAX POST OP) Pneumonia Cardiac: No Neurological: No 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 oz. kg; 25.00 BMI Method: General Appearance: No Apparent Distress, WD/WN, Anxious Neck: Full Range of Motion, Normal Inspection, Non Tender, Supple; No Carotid Bruit, No JVD Respiratory: Chest Non Tender, Normal Breath Sounds, No Accessory Muscle Use, No Respiratory Distress Cardiovascular: Regular Rate, Rhythm, No Edema, No JVD, No Murmur, Normal Peripheral Pulses Gastrointestinal: Normal Bowel Sounds, No Organomegaly, No Pulsatile Mass, Non Tender, Soft Extremity: Normal Capillary Refill, Normal Inspection, Normal Range of Motion, Non Tender, No Calf Tenderness, No Pedal Edema Neurologic/Psychiatric: Alert, Oriented x3, No Motor/Sensory Deficits, 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 Norm as Tested, Other (ANXIOUS) Skin: Normal Color, Warm/Dry; No Rash Progress/Results/Core Measures Results/Orders Lab Results Laboratory Tests Test 01/23/22 14:30 01/23/22 17:26 Range/Units White Blood Count 7.8 4.3-11.0 10^3/uL Red Blood Count 4.72 3.80-5.11 10^6/uL Hemoglobin 15.3 11.5-16.0 g/dL Hematocrit 45 35-52 % Mean Corpuscular Volume 96 80-99 fL Mean Corpuscular Hemoglobin 32 25-34 pg Mean Corpuscular Hemoglobin Concent 34 32-36 g/dL Red Cell Distribution Width 13.1 10.0-14.5 % Platelet Count 281 130-400 10^3/uL Mean Platelet Volume 9.3 9.0-12.2 fL Immature Granulocyte % (Auto) 0 % Neutrophils (%) (Auto) 52 42-75 % Lymphocytes (%) (Auto) 37 12-44 % Monocytes (%) (Auto) 7 0-12 % Eosinophils (%) (Auto) 3 0-10 % Basophils (%) (Auto) 1 0-10 % Neutrophils # (Auto) 4.1 1.8-7.8 10^3/uL Lymphocytes # (Auto) 2.9 1.0-4.0 10^3/uL Monocytes # (Auto) 0.5 0.0-1.0 10^3/uL Eosinophils # (Auto) 0.2 0.0-0.3 10^3/uL Basophils # (Auto) 0.1 0.0-0.1 10^3/uL Immature Granulocyte # (Auto) 0.0 0.0-0.1 10^3/uL Prothrombin Time 12.8 12.2-14.7 SEC INR Comment 0.9 0.8-1.4 Activated Partial Thromboplast Time 29 24-35 SEC D-Dimer 0.44 0.00-0.49 UG/ML Sodium Level 143 135-145 MMOL/L Potassium Level 3.7 3.6-5.0 MMOL/L Chloride Level 104 98-107 MMOL/L Carbon Dioxide Level 26 21-32 MMOL/L Anion Gap 13 5-14 MMOL/L Blood Urea Nitrogen 11 7-18 MG/DL Creatinine 0.94 0.60-1.30 MG/DL Estimat Glomerular Filtration Rate 68 BUN/Creatinine Ratio 12 Glucose Level 106 H 70-105 MG/DL Calcium Level 9.6 8.5-10.1 MG/DL Corrected Calcium 8.5-10.1 MG/DL Magnesium Level 2.2 1.6-2.4 MG/DL Total Bilirubin 0.8 0.1-1.0 MG/DL Aspartate Amino Transf (AST/SGOT) 15 5-34 U/L Alanine Aminotransferase (ALT/SGPT) 15 0-55 U/L Alkaline Phosphatase 71 40-136 U/L Total Creatine Kinase 75 29-168 U/L Creatine Kinase MB 0.8 <6.6 NG/ML Myoglobin 42.7 10.0-92.0 NG/ML Troponin I < 0.028 < 0.028 <0.028 NG/ML B-Type Natriuretic Peptide 49.4 <100.0 PG/ML Total Protein 7.7 6.4-8.2 GM/DL Albumin 4.6 H 3.2-4.5 GM/DL Amylase Level 60 25-125 U/L Lipase 22 8-78 U/L My Orders Orders - LAURA CLARK DO Cbc With Automated Diff (01/23/22 14:31) Magnesium (01/23/22 14:31) Chest 1 View, Ap/Pa Only (01/23/22 14:31) Ekg Tracing (01/23/22 14:31) Comprehensive Metabolic Panel (01/23/22 14:31) Myoglobin Serum (01/23/22 14:31) Protime With Inr (01/23/22 14:31) Partial Thromboplastin Time (01/23/22 14:31) O2 (01/23/22 14:31) Monitor-Rhythm Ecg Trace Only (01/23/22 14:31) Ed Iv/Invasive Line Start (01/23/22 14:31) Creatine Kinase (01/23/22 14:31) Creatine Kinase Mb (01/23/22 14:31) Lipase (01/23/22 14:31) Amylase (01/23/22 14:31) Bnp Parker (01/23/22 14:31) Fibrin Degradation Products (01/23/22 14:31) Troponin I Parker (01/23/22 14:31) Nitroglycerin 0.4 Mg Btl 25's (Nitrostat (01/23/22 14:45) Aspirin Chewable Tablet (Baby Aspirin Ch (01/23/22 14:45) Ekg Tracing (01/23/22 14:31) Troponin I Parker (01/23/22 17:04) Aspirin Chewable Tablet (Baby Aspirin Ch (01/23/22 17:29) Medications Given in ED Vital Signs/I&O 01/23/22 01/23/22 01/23/22 14:26 14:32 18:21 Pulse 78 64 Resp 16 18 B/P (MAP) 112/66 Pulse Ox 98 98 98 O2 Delivery Room Air Room Air Room Air Progress Progress Note : Progress Note NO COMPLAINTS OF CHEST PAIN OR ANY COMPLAINTS DURING ER STAY 3 HOUR REPEAT TROPONIN AND CXR--BOTH NEGATIVE Initial ECG Impression Date: January 23, 2022 Initial ECG Impression Time: 14:33 Initial ECG Rate: 74 Initial ECG Rhythm: Normal Sinus Initial ECG Comparisson: No Previous ECG Available EKG : EKG Time: 17:32 Rate: 71 Rhythm: Normal Sinus (MUCH ARTIFACT) ECG Comparisson: Unchanged Diagnostic Imaging Comments CXR--PER RADIOLOGIST REPORT AT 1535 FINDINGS: Heart size and pulmonary vasculature are normal. The lungs are clear without consolidation, pleural effusion, or pneumothorax. The osseous structures are intact. IMPRESSION: No acute radiographic abnormality in the chest. Reviewed: Reviewed by Me Departure Impression Primary Impression: Chest pain Disposition: 01 HOME, SELF-CARE Condition: Stable Departure-Patient Inst. Decision time for Depature: 18:15 Referrals: IRENE RADER MD (PCP/Family) Primary Care Physician Patient Instructions: Chest Pain (DC) Add. Discharge Instructions: TAKE 81 MG ASPIRIN DAILY FOLLOW UP WITH YOUR DR IN 2-3 DAYS FOR FURTHER CARE RETURN TO ER IF SYMPTOMS RETURN All discharge instructions reviewed with patient and/or family. Voiced understanding. LAURA CLARK DO January 23, 2022 14:54
[2022-01-23 14:55] LABS: CREATININE SERUM 0.94 MG/DL (0.60-1.30); GFR ESTIMATED 68
[2022-01-23 14:56] LABS: BUN/CREATININE RATIO 12
[2022-01-23 14:57] LABS: MAGNESIUM 2.2 MG/DL (1.6-2.4)
[2022-01-23 14:58] LABS: ALANINE AMINOTRANSFERASE 15 U/L (0-55)
[2022-01-23 14:59] LABS: CREATINE KINASE 75 U/L (29-168); LIPASE 22 U/L (8-78)
[2022-01-23 15:06] LABS: CREATINE KINASE MB 0.8 NG/ML (<6.6)
[2022-01-23] MEDS ORDERED: ASPIRIN 81 MG CHEW (CHILDREN'S ASA) ONE (17:29)
[2022-01-23 18:21] VITALS: BP 112/66
== END 2022-01-23 18:23 | disposition home or self-care (01) ==
LOC: EDUNIT# 14:22 → ER 14:23
DX: R07.2 Precordial pain (principal); F17.210 Nicotine dependence, cigarettes, uncomplicated
CPT/HCPCS: 36415; 71045; 80053; 82150; 82550; 82553; 83690; 83735; 83874; 83880; 84484; 85025; 85379; 85610; 85730; 93005; 93041

== ENCOUNTER 2022-11-12 16:29 | Emergency (ER) | payer OTHER ==
[2022-11-12] MEDS ORDERED: METOCLOPRAMIDE INJ 10 MG/2 ML (REGLAN) IVP STA (16:36)
--- NOTE | 2022-11-12 16:42 | ED Dyspnea ---
General Chief Complaint: Chest Pain Stated Complaint: CHEST TIGHTNESS - SOA History of Present Illness Date Seen by Provider: Nov 12, 2022 Time Seen by Provider: 16:38 Initial Comments 67-year-old female presents with what she feels like is some chest tightness and difficulty catching her breath. She feels like there is something just stuck in her lower chest right in the mid that is causing her to feel like she cannot catch her breath. She reports that been going on and off for about a week. She went to urgent care 2 days ago where they told her she had a bronchitis and gave her a steroid shot. She reports that there was no x-rays obtained. No nausea, vomiting, diaphoresis. Allergies and Home Medications Allergies Coded Allergies: erythromycin base (Verified Allergy, Unknown, 09/05/20) Patient Home Medication List Home Medication List Reviewed: Yes Cefdinir (Cefdinir) 300 Mg Capsule, 300 MG PO BID Prescribed by: LONNY LUCIANO on 09/30/201605 Dexamethasone (Decadron) 6 Mg Tablet, 6 MG PO DAILY Prescribed by: LAURA CLARK on 09/05/202126 Guaifenesin/Dextromethorphan (Mucinex Dm ER 1,200-60 mg Tab) 1 Each Tbmp.12hr, 1 EACH PO BID Prescribed by: LAURA CLARK on 09/05/202126 Ondansetron (Ondansetron Odt) 8 Mg Tab.rapdis, 8 MG PO Q6H Prescribed by: LAURA CLARK on 09/05/202125 Prednisone (Prednisone) 20 Mg Tab, 40 MG PO DAILY Prescribed by: JERZY LYNN on 09/13/201940 Prednisone (Prednisone) 20 Mg Tab, 40 MG PO DAILY Prescribed by: LONNY LUCIANO on 09/30/201605 Promethazine HCl/Codeine (Prometh-Codein 6.25-10 mg/5 ml) 5 Ml Syrup, 5 ML PO Q4H PRN for COUGH Prescribed by: JERZY LYNN on 09/13/201940 Review of Systems Review of Systems Constitutional: malaise EENTM: nose congestion Respiratory: cough, short of breath Cardiovascular: see HPI; No palpitations, No syncope Gastrointestinal: No abdominal pain, No nausea, No vomiting Genitourinary: no symptoms reported Musculoskeletal: no symptoms reported Skin: no symptoms reported Past Ewshgaw-Sypzds-Sqnnuv Hx Immunizations Up To Date Tetanus Booster (TDap): Unknown First/Initial COVID19 Vaccinat: pfizer Seasonal Allergies Seasonal Allergies: No Past Medical History Surgery/Hospitalization HX: hystrectomy, pneumothorax Surgeries: Yes (RIGHT PNEUMOTHORAX/CHEST TUBE; HYST/BSO/APPY; BLADDER REPAIR; BOWEL REPAIR) Abdominal, Appendectomy, Bladder Surgery, Bowel Surgery, Hysterectomy, Oophorectomy Respiratory: Yes (PNEUMONIA X 1; RIGHT PNEUMOTHORAX POST OP) Pneumonia Cardiac: No Neurological: No 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 oz. kg; 25.00 BMI Method: General Appearance: Anxious HEENT: PERRL/EOMI, Normal ENT Inspection Respiratory: Lungs Clear, Normal Breath Sounds Cardiovascular: Regular Rate, Rhythm, No Edema Gastrointestinal: Soft, Tenderness (epigastric ) Extremity: Normal Capillary Refill, Normal Inspection, Normal Range of Motion Neurologic/Psychiatric: Alert, Oriented x3, No Motor/Sensory Deficits Skin: Normal Color, Warm/Dry Progress/Results/Core Measures Results/Orders Lab Results Laboratory Tests Test 11/12/22 16:48 Range/Units White Blood Count 7.7 4.3-11.0 10^3/uL Red Blood Count 4.50 3.80-5.11 10^6/uL Hemoglobin 14.2 11.5-16.0 g/dL Hematocrit 42 35-52 % Mean Corpuscular Volume 93 80-99 fL Mean Corpuscular Hemoglobin 32 25-34 pg Mean Corpuscular Hemoglobin Concent 34 32-36 g/dL Red Cell Distribution Width 13.1 10.0-14.5 % Platelet Count 241 130-400 10^3/uL Mean Platelet Volume 9.4 9.0-12.2 fL Immature Granulocyte % (Auto) 0 % Neutrophils (%) (Auto) 55 42-75 % Lymphocytes (%) (Auto) 32 12-44 % Monocytes (%) (Auto) 9 0-12 % Eosinophils (%) (Auto) 3 0-10 % Basophils (%) (Auto) 1 0-10 % Neutrophils # (Auto) 4.2 1.8-7.8 X 10^3 Lymphocytes # (Auto) 2.5 1.0-4.0 X 10^3 Monocytes # (Auto) 0.7 0.0-1.0 X 10^3 Eosinophils # (Auto) 0.2 0.0-0.3 10^3/uL Basophils # (Auto) 0.1 0.0-0.1 10^3/uL Immature Granulocyte # (Auto) 0.0 0.0-0.1 10^3/uL D-Dimer 0.53 H 0.00-0.49 UG/ML Sodium Level 140 135-145 MMOL/L Potassium Level 3.4 L 3.6-5.0 MMOL/L Chloride Level 104 98-107 MMOL/L Carbon Dioxide Level 24 21-32 MMOL/L Anion Gap 12 5-14 MMOL/L Blood Urea Nitrogen 15 7-18 MG/DL Creatinine 0.78 0.60-1.30 MG/DL Estimat Glomerular Filtration Rate 84 BUN/Creatinine Ratio 19 Glucose Level 103 70-105 MG/DL Calcium Level 8.9 8.5-10.1 MG/DL Corrected Calcium 8.7 8.5-10.1 MG/DL Magnesium Level 2.1 1.6-2.4 MG/DL Total Bilirubin 0.7 0.1-1.0 MG/DL Aspartate Amino Transf (AST/SGOT) 17 5-34 U/L Alanine Aminotransferase (ALT/SGPT) 16 0-55 U/L Alkaline Phosphatase 70 40-136 U/L C-Reactive Protein High Sensitivity 0.10 0.00-0.50 MG/DL Total Protein 7.3 6.4-8.2 GM/DL Albumin 4.3 3.2-4.5 GM/DL Lipase 17 8-78 U/L My Orders Orders - MICHAEL,CHEPE L DO Chest Pa/Lat (2 View) (11/12/22 16:36) Cbc With Automated Diff (11/12/22 16:36) Comprehensive Metabolic Panel (11/12/22 16:36) Hs C Reactive Protein (11/12/22 16:36) Lipase (11/12/22 16:36) Magnesium (11/12/22 16:36) Metoclopramide Injection (Reglan Injecti (11/12/22 16:36) Albuterol/Ipra Inhalation Soln (Duoneb I (11/12/22 16:45) Svn Small Volume Nebulizer (11/12/22 16:36) Ekg Tracing (11/12/22 17:13) Fibrin Degradation Products (11/12/22 17:19) Medications Given in ED Current Medications Medications Dose Ordered Sig/Ricardo Route Start Time Stop Time Status Last Admin Dose Admin Albuterol/ Ipratropium 3 ml ONCE ONCE INH 11/12/22 16:45 11/12/22 16:46 DC 11/12/22 17:02 3 ML Vital Signs/I&O 11/12/22 11/12/22 16:32 17:02 Temp 36.1 Pulse 77 Resp 24 B/P (MAP) 127/90 (102) Pulse Ox 99 O2 Delivery Room Air Progress Progress Note : Progress Note Patient tested and results were reviewed with with negative x-ray, EKG and labs. Patient's symptoms feel like some continued chest congestion that she has been having recurrently for at least 2 to 3 years since she had COVID initially. I recommend she try a trial of Flonase to make sure she did have some postnasal drip along with some Mucinex and plenty of fluids. This time she does not appear to have any acute process going on. Patient's vital signs are stable with her O2 saturations in the upper 90s. I recommended that if she continues to have symptoms she follow-up with her primary care provider and may be consider an EGD and further evaluation. Patient was stable and discharged home Initial ECG Impression Date: Nov 12, 2022 Initial ECG Impression Time: 16:33 Initial ECG Rate: 66 Initial ECG Rhythm: Normal Sinus Initial ECG Intervals: Normal Initial ECG Impression: Normal Diagnostic Imaging Diagonstic Imaging: Xray Plain Films/CT/US/NM/MRI: chest Comments DMIT DATE: 11/12/22/ER Draft Date of Exam:11/12/22 CHEST PA/LAT (2 VIEW) INDICATION: Shortness of breath and cough. EXAMINATION: PA and lateral chest. FINDINGS: Heart size and pulmonary vascularity are normal. Lungs are clear. There are no effusions or pneumothoraces. IMPRESSION: Negative chest. Reviewed: Reviewed by Me, Reviewed/Discussed Departure Impression Primary Impression: Bronchitis Disposition: 01 HOME, SELF-CARE Condition: Stable Departure-Patient Inst. [place]: [facility] ([place]P/Family) Primary Care Physician Patient Instructions: Acute Bronchitis, BRONCHOSPASM-ADULT Add. Discharge Instructions: flonase, nasocort or similar medication, use as directed on package. mucinex, use as directed on package. drink plenty of fluids. Follow-up with your primary care provider next week All discharge instructions reviewed with patient and/or family. Voiced und erstanding. CHEPE MICHAEL DO Nov 12, 2022 16:42
[2022-11-12] MEDS ORDERED: RT-ALBUTEROL/IPRATROPIUM 3 ML (DUONEB) VIAL INH ONE (16:45)
[2022-11-12 16:55] LABS: BASOPHILS # (AUTO) 0.1 10^3/uL (0.0-0.1); BASOPHILS % (AUTO) 1 % (0-10); EOSINOPHILS # (AUTO) 0.2 10^3/uL (0.0-0.3); EOSINOPHILS % (AUTO) 3 % (0-10); HEMATOCRIT 42 % (35-52); HEMOGLOBIN 14.2 g/dL (11.5-16.0); LYMPHOCYTES # (AUTO) 2.5 X 10^3 (1.0-4.0); LYMPHOCYTES % (AUTO) 32 % (12-44); MEAN CORPUSCULAR HEMOGLOBIN 32 pg (25-34); MEAN CORPUSCULAR HGB CONC 34 g/dL (32-36); MEAN CORPUSCULAR VOLUME 93 fL (80-99); MEAN PLATELET VOLUME 9.4 fL (9.0-12.2); MONOCYTES # (AUTO) 0.7 X 10^3 (0.0-1.0); MONOCYTES % (AUTO) 9 % (0-12); NEUTROPHILS # (AUTO) 4.2 X 10^3 (1.8-7.8); NEUTROPHILS % (AUTO) 55 % (42-75); PLATELET COUNT 241 10^3/uL (130-400); WHITE BLOOD COUNT 7.7 10^3/uL (4.3-11.0)
--- NOTE | 2022-11-12 16:55 | Diagnostic Imaging Report ---
INDICATION: Shortness of breath and cough. EXAMINATION: PA and lateral chest. FINDINGS: Heart size and pulmonary vascularity are normal. Lungs are clear. There are no effusions or pneumothoraces. IMPRESSION: Negative chest. Dictated by: Dictated on workstation # [id number]
[2022-11-12 17:05] LABS: ALBUMIN 4.3 GM/DL (3.2-4.5); POTASSIUM 3.4 MMOL/L (3.6-5.0)
[2022-11-12 17:06] LABS: CALCIUM 8.9 MG/DL (8.5-10.1)
[2022-11-12 17:07] LABS: TOTAL PROTEIN 7.3 GM/DL (6.4-8.2)
[2022-11-12 17:09] LABS: BILIRUBIN,TOTAL 0.7 MG/DL (0.1-1.0)
[2022-11-12 17:11] LABS: CREATININE SERUM 0.78 MG/DL (0.60-1.30)
[2022-11-12 17:14] LABS: MAGNESIUM 2.1 MG/DL (1.6-2.4)
[2022-11-12 18:00] VITALS: BP 115/59
== END 2022-11-12 18:02 | disposition home or self-care (01) ==
LOC: EDUNIT# 16:29 → ER 16:30
DX: J40 Bronchitis, not specified as acute or chronic (principal); Z28.311 Partially vaccinated for COVID-19
CPT/HCPCS: 36415; 71046; 80053; 83690; 83735; 85025; 85379; 86141; 93005; 94640

== ENCOUNTER → 2023-01-17 | Outpatient (CLI) | payer OTHER | LOC: CARD 10:30 | PROVIDERS: ATTEND Internal Medicine Cardiovascular Disease | DX: I35.8 Other nonrheumatic aortic valve disorders (principal); I10 Essential (primary) hypertension; I25.10 Atherosclerotic heart disease of native coronary artery without angina pectoris | CPT/HCPCS: 93306 ==

== ENCOUNTER → 2023-02-21 | Outpatient (CLI) | payer OTHER ==
[~2023-02-21] VITALS: Ht 162 cm; Wt 73.0 kg
[~2023-02-21] MED LIST changes: +CATHETER FLUSH 10 ML SYR IVP PRN; +REGADENOSON 0.4 MG/5 ML SYR (LEXISCAN) IV ONE
[2023-02-21 09:27] VITALS: BP 134/82
[2023-02-21 09:39] VITALS: BP 148/62
--- NOTE | 2023-02-21 11:24 | Cardiology Stress Test Report ---
Stress Test Report Date of Procedure/Referring: Date of Procedure: Feb 21, 2023 [facility] Admitting Physician Admitting Physician: Attending Physician: Ab Capone MD Baseline Heart Rate: 69 Baseline Blood Pressure: Blood Pressure Systolic: 148 Blood Pressure Diastolic: 62 Baseline Vitals Vital Signs Date Time Temp Pulse Resp B/P (MAP) Pulse Ox O2 Delivery O2 Flow Rate FiO2 02/21/23 09:27 69 134/82 (99) Baseline EKG: Baseline EKG: NSR Summary After explaining the procedure to the patient, she signed a consent and then brought to the stress nuclear laboratory. Patient received 0.4 mg Lexiscan for stress test, ECG, heart rate and blood pressure were monitored continuously. Resting and stress dose of radio tracer were injected, imaging was acquired and reviewed in short axis, horizontal long axis and vertical long axis views. TID: 1.11 SSS: 5 SDS: 5 EF: 76 Patient was unable to exercise beyond 5 minutes and 40 seconds on standard Yazan protocol, did not achieve target heart rate, test converted to Lexiscan Myoview stress test Patient tolerated Lexiscan well Reversible ischemia involving the mid to apical anterior wall and anterior lateral wall Normal left ventricular size, ejection fraction 76% Copy Copies To 1: [facility]/ AB CAPONE MD Feb 21, 2023 11:24
== END ==
LOC: CARD 07:35
PROVIDERS: ATTEND Internal Medicine Cardiovascular Disease
DX: I10 Essential (primary) hypertension (principal); I25.10 Atherosclerotic heart disease of native coronary artery without angina pectoris
CPT/HCPCS: 78452; 93017; A9502

== ENCOUNTER 2023-03-02 07:44 | Day surgery (SDC) | payer OTHER ==
[2023-03-02] VITALS (8 sets, daily range): BP systolic 95–137; BP diastolic 51–70
[~2023-03-02] VITALS: Ht 162 cm; Wt 76.2 kg
[~2023-03-02 07:44] MED LIST changes: -CATHETER FLUSH 10 ML SYR IVP PRN; -REGADENOSON 0.4 MG/5 ML SYR (LEXISCAN) IV ONE
[2023-03-02] MEDS ORDERED: LIDOCAINE 1% INJ 20 ML VIAL ONE (07:57)
[2023-03-02] MEDS ORDERED: NS IV 1000 ML 1,000 ML ONE (07:57)
[2023-03-02] MEDS ORDERED: HEParin (CATH LAB) 2,000 ML IV ONE (07:57)
[2023-03-02] MEDS ORDERED: NS IV 1000 ML 1,000 ML IV ONE (08:00)
--- NOTE | 2023-03-02 08:23 | Diagnostic Imaging Report ---
INDICATION: History of shortness of breath. Pre-heart catheterization evaluation. TECHNIQUE: Single view chest 11/12/2022. CORRELATION STUDY: None FINDINGS: The heart size, mediastinal configuration and pulmonary vascularity are within normal limits. The lungs are hyperinflated but clear. There is no significant effusion or pneumothorax. IMPRESSION: 1. Negative appearing single view chest. Dictated by: Dictated on workstation # [id number]
[2023-03-02 08:46] LABS: BILIRUBIN,URINE NEGATIVE (NEGATIVE); CLARITY,URINE SL CLOUDY; COLOR,URINE YELLOW; GLUCOSE, URINE (UA) NEGATIVE (NEGATIVE); KETONES,URINE NEGATIVE (NEGATIVE); LEUKOCYTE ESTERASE ,URINE TRACE (NEGATIVE); NITRITE,URINE NEGATIVE (NEGATIVE); PH,URINE 5.5 (5-9); PROTEIN,URINE NEGATIVE (NEGATIVE)
[2023-03-02 08:52] LABS: HEMATOCRIT 41 % (35-52); MEAN CORPUSCULAR HEMOGLOBIN 32 pg (25-34); MEAN CORPUSCULAR HGB CONC 34 g/dL (32-36); MEAN CORPUSCULAR VOLUME 95 fL (80-99); MEAN PLATELET VOLUME 9.5 fL (9.0-12.2); PLATELET COUNT 219 10^3/uL (130-400); WHITE BLOOD COUNT 5.5 10^3/uL (4.3-11.0)
[2023-03-02] MEDS ORDERED: ACET325T38 PO (08:53)
[2023-03-02] MEDS ORDERED: ASPI-1238 PO (08:53)
[2023-03-02] MEDS ORDERED: IBUP-2473 PO (08:53)
[2023-03-02] MEDS ORDERED: MELA5TAB14 PO (08:53)
[2023-03-02 09:03] LABS: BACTERIA,URINE NEGATIVE /HPF; SQUAMOUS EPITHELIAL CELL,UR 0-2 /HPF; WBC,URINE RARE /HPF; YEAST,URINE FEW /HPF
[2023-03-02 09:05] LABS: INR 0.9 (0.8-1.4); PROTHROMBIN TIME PATIENT 12.5 SEC (12.2-14.7)
[2023-03-02 09:08] LABS: ALBUMIN 4.2 GM/DL (3.2-4.5); BILIRUBIN,TOTAL 0.9 MG/DL (0.1-1.0); CALCIUM 9.2 MG/DL (8.5-10.1); CREATININE SERUM 0.81 MG/DL (0.60-1.30); POTASSIUM 3.8 MMOL/L (3.6-5.0); TOTAL PROTEIN 6.9 GM/DL (6.4-8.2)
[2023-03-02] MEDS ORDERED: VERAPAMIL 5 MG/2 ML (CALAN) VIAL IV ONE (10:02)
[2023-03-02] MEDS ORDERED: HEParin 1000 UNIT/ML (10ML VIAL) FOR BOLUS ONE (10:02)
[2023-03-02] MEDS ORDERED: NITRO DRIP 25000 MCG/D5W 250 ML IV ONE (10:02)
[2023-03-02] MEDS ORDERED: fentaNYL INJ 100 MCG/2 ML AMP ONE (10:02)
[2023-03-02] MEDS ORDERED: MIDAZOLAM 5 MG/5 ML (VERSED) VIAL ONE (10:02)
--- NOTE | 2023-03-02 10:11 | Cardiac Procedure Note-CS/ASA ---
Pre-Procedure Note Pre-Op Procedure Note Date of Available H&P: Feb 21, 2023 Date H&P Reviewed: Mar 02, 2023 Time H&P Reviewed: 10:11 History & Physical: H&P Reviewed, Patient Examed, No changes noted Pre-Operative Diagnosis: CAD Moderate Sedation PreProcedure Time 10:11 ASA Score 3 Airway Lungs Heart ASA score ASA 1: a normal healthy patient ASA 2: a patient with a mild systemic disease (mid diabetes, controlled hypertension, obesity ASA 3: a patient with a severe systemic disease that limits activity (angina, COPD, prior Myocardial infarction) ASA 4: a patient with an incapacitating disease that is a constant threat to life (CHF, renal failure) ASA 5: a moribund patient not expected to survive 24 hrs. (ruptured aneurysm) ASA 6: a declared brain- patient whose organs are being harvested. For emergent operations, add the letter E after the classification Mallampati Classification Grade 3 Sedation Plan Analgesia, Amnesia, Plan communicated to team members, Discussed options with patient/fam, Discussed risks with patient/fam The patient is an appropriate candidate to undergo the planned procedure, sedation, and anesthesia. The patient immediately re-assessed prior to indication. AB HARPER MD Mar 02, 2023 10:11
--- NOTE | 2023-03-02 10:50 | Discharge Inst-Post CATH ---
Discharge Inst-CATH/EP Problems Reviewed?: Yes Post Cardiac Cath/EP D/C Inst Follow Up/Plan Appointment with Dr. Capone's office in 2 to 4 weeks <b>CARDIAC CATH/EP PROCEDURE DISCHARGE INSTRUCTIONS</b> ACTIVITY * Go Home directly and rest. * Limit activity of the leg (or wrist if it was used) for 7 days including aer obics, swimming, jogging, bicycling, etc. * Restrict stair-climbing for 7 days if possible, if not, climb up with your non-cath leg, then bring together on the same step. * Avoid lifting, pushing, pulling or excessive movement of the affected extremi ty for 7 days. * Customary sexual activity may be resumed after 2 days-use caution not to use a position that strains or causes pain to the affected extremity. * No driving for 24 hours. * NO SMOKING. * Avoid straining for bowel movements for 7 days. * Gentle walking on level ground is allowed. * Returning to work will depend on the type of procedure and the results. Your doctor will discuss this with you. CALL YOUR DOCTOR FOR ANY OF THE FOLLOWING: *If bleeding from the puncture site occurs- Apply gentle pressure to site with clean cloth and call your doctor or EMS. * If a knot or lump forms under the skin, increases in size, or causes pain. * If bruising appears to be worsening or moving further down your leg instead of disappearing. * Temperature above 101 F. CARE OF YOUR GROIN INCISION; * Bruising or purple discoloration of the skin near the puncture site is common. * You may shower only, no bathtub bathing for 5 days. Be careful to avoid slipping as your leg may feel stiff. * If a closure device was used on your femoral artery, please see the attached guide regarding care of the device and your leg. * Leave dressing on FOR 24 hours. CARE OF YOUR WRIST INCISION; * Bruising or purple discoloration of the skin near the puncture site is common. * You may shower. * DO NOT submerge wrist. * Leave dressing on FOR 24 hours. AB CAPONE MD Mar 02, 2023 10:50
[2023-03-02] MEDS ORDERED: ATOR10TA PO (10:51)
--- NOTE | 2023-03-02 10:54 | Cardiac Cath Report ---
Cardiac Cath Report Physician (s)/Electronic Transaction Implementer (s) Physician AB HARPER MD Pre-Procedure Diagnosis Pre-Procedure Diagnosis: CAD Post-Procedure Note Procedure Start Date: Mar 02, 2023 Name of Procedure: Left heart catheterization Findings/Procedure Note PROCEDURE NOTE: 67-year-old lady with a history of hyperlipidemia, has been having chest pain, had an abnormal stress test, scheduled for cardiac catheterization possible PTCA. After explaining the procedure to the patient, all pros and cons were explained, all questions were answered. The patient signed the consent and then she was placed in the cardiac catheterization laboratory. Groin was prepped in SL fashion local anesthesia was used. Sheath placed in the right radial artery, [place] catheter was advanced to the left ventricular cavity, pressure was measured, pullback LV to aorta was done, engage the left coronary system, angiogram was done. Patient had very slow flow in the LAD without significant obstructive disease probably has small vessel disease. I proceeded with intracoronary nitroglycerin 200 mcg, postinjection the flow was normal. The catheter was turned and engaged the right coronary system and angiogram was done. At the end of the procedure the sheath was removed. Vascular band was used FINDINGS: Hemodynamics LV 114/16, end-diastolic pressure of 16 Aorta 104/61 mean of 87 ANATOMY: Left Main is free of obstructive disease Left Anterior Descending has no significant obstructive disease, slow flow in the LAD due to coronary spasm and small vessel disease improved after intracoronary nitroglycerin Left Circumflex is moderate in size with no obstructive disease Right Coronary Artery is dominant artery with no obstructive disease LV Gram was not done, pressure was measured CONCLUSION: Coronary spasm and small vessel disease in the LAD with slow flow, no significant obstructive disease, the flow improved significantly after intracoronary nitroglycerin Otherwise no significant obstructive disease with dominant right coronary system Normal left ventricular end-diastolic pressure DISCUSSION AND RECOMMENDATION: Continue on aspirin and adding Lipitor 10 mg due to LDL 137 Anesthesia Type: Conscious Sedation Estimated blood loss (mL): 10 ml Contrast Amount: 32 ml Post-Procedure Diagnosis Post-operative diagnosis: Chest pain Coronary artery disease Hypertension Hyperlipidemia AB HARPER MD Mar 02, 2023 10:54
[2023-03-02] MEDS ORDERED: NS IV 1000 ML 1,000 ML IV SCH (11:00)
== END 2023-03-02 13:10 | disposition home or self-care (01) ==
LOC: CATH 07:44 → SDC 11:05 → CATH 13:10
PROVIDERS: ATTEND Internal Medicine Cardiovascular Disease
DX: I25.10 Atherosclerotic heart disease of native coronary artery without angina pectoris (principal); I10 Essential (primary) hypertension; E78.2 Mixed hyperlipidemia; I35.0 Nonrheumatic aortic (valve) stenosis; R06.09 Other forms of dyspnea; K21.9 Gastro-esophageal reflux disease without esophagitis; Z87.891 Personal history of nicotine dependence; Z79.899 Other long term (current) drug therapy
CPT/HCPCS: 71045; 80053; 80061; 81000; 85027; 85610; 85730; 87081; 87088; 93005; 93458; C1894; 36415